=== PATIENT | male | born 1960 | race Caucasian/White ===

== ENCOUNTER 2022-09-26 13:31 | Outpatient (CLI) | payer MEDICAID, SELFPAY ==
--- NOTE | 2022-09-26 13:30 | RT.EKG_ITS ---
APPROVED REPORT Exam: Resting ECG Reason for Exam: NPW, Baseline needed Patient Location: O HR:93 bpm ECG Measurements Heart Rate 93 AXIS ND 164 P 67 QRSd 82 QRS 48 QT 321 T 243 QTc 400 Conclusion Sinus rhythm...normal P axis, V-rate 50- 99 Nonspecific T abnormalities, diffuse leads...T <-0.10mV, ant/lat/inf Baseline wander in lead(s) V2
== END 2022-09-26 13:32 | disposition home or self-care (01) ==
LOC: DI.CARD 13:32
PROVIDERS: PCP Family Medicine; Visit Provider Internal Medicine Cardiovascular Disease
DX: R07.9 Chest pain, unspecified (principal)
CPT/HCPCS: 93010